=== PATIENT | female | born 1950 | race Asian ===

== ENCOUNTER 2016-08-30 08:54 | Outpatient (CLI) | payer BC ==
[~2016-08-30 08:54] MED LIST: ACTOS45 MG PO; ASA LOW DOSE81 MG PO; DILTIAZEM180 M1 PO; DIOVAN160 MG PO; GLUCOTROL10 MG PO; LIPITOR40 MG PO; METFORMIN500 M2 PO
== END 2016-08-30 19:46 | disposition home or self-care (01) ==
LOC: MAMMO 08:54
DX: Z12.31 Encounter for screening mammogram for malignant neoplasm of breast (principal)
CPT/HCPCS: G0202-TC

== ENCOUNTER 2017-09-01 10:25 | Outpatient (CLI) | payer BC | END 2017-09-02 05:18 | disposition home or self-care (01) | LOC: MAMMO 10:25 | DX: Z12.31 Encounter for screening mammogram for malignant neoplasm of breast (principal) ==

== ENCOUNTER 2018-09-03 18:02 | Emergency (ER) | payer BC, OTHER ==
[~2018-09-03] VITALS: Ht 152.4 cm; Wt 102.5 kg
[2018-09-03 18:08] VITALS: BP 151/89; TEMP 98
[2018-09-03] MEDS ORDERED: HUMULIN R100 UNIT/M SC (18:24)
[2018-09-03] MEDS ORDERED: TRESIBA FL100 UNIT/M SC (18:25)
[2018-09-03] MEDS ORDERED: LIPITOR40 MG PO (18:31)
[2018-09-03] MEDS ORDERED: CARTIA XT180 MG PO (18:31)
[2018-09-03] MEDS ORDERED: TRAMADOL HYDROC50 MG PO (18:32)
[2018-09-03] MEDS ORDERED: TRIA37.541 PO (18:33)
[2018-09-03] MEDS ORDERED: ALBUTEROL0.083 % INH (18:34)
[2018-09-03] MEDS ORDERED: PROAIR HFA108 MCG/AC INH (18:41)
== END 2018-09-03 18:59 | disposition home or self-care (01) ==
LOC: ED 18:02
DX: S90.31XA Contusion of right foot, initial encounter (principal); W22.8XXA Striking against or struck by other objects, initial encounter; Y92.89 Other specified places as the place of occurrence of the external cause
CPT/HCPCS: 99282

== ENCOUNTER 2018-09-14 10:41 | Outpatient (CLI) | payer BC ==
[~2018-09-14 10:41] MED LIST changes: +ALBUTEROL0.083 % INH; +CARTIA XT180 MG PO; +HUMULIN R100 UNIT/M SC; +PROAIR HFA108 MCG/AC INH; +TRAMADOL HYDROC50 MG PO; +TRESIBA FL100 UNIT/M SC; +TRIA37.541 PO
== END 2018-09-14 20:25 | disposition home or self-care (01) ==
LOC: MAMMO 10:41
DX: Z12.31 Encounter for screening mammogram for malignant neoplasm of breast (principal)

== ENCOUNTER 2019-09-20 09:26 | Outpatient (CLI) | payer BC | END 2019-09-20 19:23 | disposition home or self-care (01) | LOC: MAMMO 09:26 | DX: Z12.31 Encounter for screening mammogram for malignant neoplasm of breast (principal) ==

== ENCOUNTER 2020-11-18 11:28 | Outpatient (CLI) | payer BC | END 2020-11-18 22:03 | disposition home or self-care (01) | LOC: MAMMO 11:28 | PROVIDERS: ATTEND Nurse Practitioner | DX: Z12.31 Encounter for screening mammogram for malignant neoplasm of breast (principal) ==

== ENCOUNTER 2021-11-22 10:12 | Outpatient (CLI) | payer BC | END 2021-11-22 18:56 | disposition home or self-care (01) | LOC: MAMMO 10:12 | PROVIDERS: ATTEND Registered Nurse | DX: R05.9 Cough, unspecified (principal); J45.909 Unspecified asthma, uncomplicated; Z12.31 Encounter for screening mammogram for malignant neoplasm of breast ==

== ENCOUNTER 2022-08-05 22:04 | Emergency (ER) | payer BC ==
[~2022-08-05] VITALS: Ht 165.1 cm; Wt 96.6 kg
[2022-08-05 22:04] VITALS: BP 147/79; TEMP 99.1
[2022-08-05 23:42] LABS: PLATELET COUNT 256 K/uL (152-353)
[2022-08-05 23:56] LABS: POTASSIUM 3.7 mmol/L (3.6-5.2)
== END 2022-08-06 01:22 | disposition home or self-care (01) ==
LOC: ED 22:04
PROVIDERS: Family Medicine
DX: J02.0 Streptococcal pharyngitis (principal); R11.0 Nausea; H92.02 Otalgia, left ear; Z20.822 Contact with and (suspected) exposure to COVID-19
CPT/HCPCS: 80053; 81002; 85027; 87502; 87635; 96360; 96374; 96375; 99284; J1885; J2405; U0003

== ENCOUNTER 2023-02-06 10:47 | Outpatient (CLI) | payer BC | END 2023-02-06 20:02 | disposition home or self-care (01) | LOC: RAD 10:47 | PROVIDERS: ATTEND Registered Nurse | DX: M25.512 Pain in left shoulder (principal) ==